=== PATIENT | female | born 1940 | race Caucasian/White ===

== ENCOUNTER 2019-07-11 15:30 | Outpatient (CLI) | payer MEDICARE, MEDICAID ==
[2019-07-11 15:13] LABS: BILIRUBIN,URINE NEGATIVE (NEGATIVE); GLUCOSE, URINE (UA) 500 mg/dL (NEGATIVE); KETONES,URINE (UA) TRACE mg/dL (NEGATIVE); LEUKOCYTE ESTERASE, URINE NEGATIVE (NEGATIVE); NITRITE,URINE NEGATIVE (NEGATIVE); OCCULT BLOOD,URINE TRACE-INTA (NEGATIVE); PH,URINE 5.5 PH (5.0-7.5); PROTEIN,URINE NEGATIVE (NEGATIVE); UROBILINOGEN,URINE 0.2 (NORMAL) E.U./dL (NORMAL)
[2019-07-11 15:14] LABS: CLARITY,URINE CLEAR (CLEAR)
== END 2019-07-11 23:59 | disposition home or self-care (01) ==
LOC: LAB.R 15:30
PROVIDERS: ATTEND Obstetrics & Gynecology
DX: R39.15 Urgency of urination (principal)
CPT/HCPCS: 81001; 81003; 87086

== ENCOUNTER 2019-09-26 11:58 | Outpatient (CLI) | payer MEDICARE, MEDICAID ==
[2019-09-26 17:27] LABS: HGB - HEMOGLOBIN 14.3 g/dL (12.0-16.0); MEAN CORPUSCULAR HEMOGLOBIN 31.6 pg (27.0-31.0); MEAN CORPUSCULAR HGB CONC 32.4 g/dL (32.0-36.0); MEAN CORPUSCULAR VOLUME 97.8 fL (81.0-99.0); MEAN PLATELET VOLUME 10.5 fL (7.9-10.8); RED BLOOD COUNT 4.52 10^6/uL (4.20-5.40); RED CELL DISTRIBUTION WIDTH 13.4 % (12.0-15.0)
[2019-09-26 17:43] LABS: ALBUMIN 4.1 g/dL (3.2-5.5); ALBUMIN/GLOBULIN RATIO 1.5 (1.0-2.2); BILIRUBIN,TOTAL 0.6 mg/dL (0.2-1.0); CALCIUM 9.5 mg/dL (8.5-10.3); CREATININE 0.6 mg/dL (0.4-1.0); TOTAL PROTEIN 6.9 g/dL (6.7-8.2)
== END 2019-09-26 11:59 | disposition home or self-care (01) ==
LOC: LAB.S 11:58
PROVIDERS: ATTEND Obstetrics & Gynecology
DX: R63.4 Abnormal weight loss (principal)
CPT/HCPCS: 36415; 80053; 85027

== ENCOUNTER 2019-09-29 10:50 | Outpatient (CLI) | payer MEDICARE, MEDICAID ==
[2019-09-29] MEDS ORDERED: IOVERSOL 320 50 ML VIAL ONE (10:57)
[2019-09-29] MEDS ORDERED: IOVERSOL 320 100 ML VIAL IVP ONE ×2 (10:58→13:06)
[2019-09-29] MEDS ORDERED: IOVERSOL 320 50 ML VIAL PO ONE (13:06)
--- NOTE | 2019-09-29 14:15 | CT Report ---
Reason: UNINTENTIONAL WEIGHT LOSS Procedure Date: 09/29/2019 Accession Number: [id number] / [id number] Procedure: CT - Abdomen/Pelvis W CPT Code: Final Report FULL RESULT: EXAM: CT ABDOMEN AND PELVIS EXAM DATE: 09/29/2019 12:09 PM. CLINICAL HISTORY: Unintentional weight loss. COMPARISONS: None. TECHNIQUE: Routine helical CT imaging was performed through the abdomen and pelvis. IV contrast: OPTI 320 100ML. Enteric contrast: Yes. Reconstructions: Coronal and sagittal. In accordance with CT protocol optimization, one or more of the following dose reduction techniques were utilized for this exam: automated exposure control, adjustment of mA and/or KV based on patient size, or use of iterative reconstructive technique. FINDINGS: Lung Bases: Unremarkable. Liver: Diffuse mild low density without mass or lobular contour changes noted. Gallbladder/Bile Ducts: There are gallbladder stones, the largest 1.6 cm without gallbladder wall thickening or bile duct dilatation. Spleen: Normal. Pancreas: Normal. Adrenal Glands: Normal. Kidneys: There is an exophytic cortical cyst, simple appearance, in the upper posterior left kidney, 1.3 cm. No stone, masses or hydronephrosis. Peritoneal Cavity/Bowel: There is colon diverticulosis without diverticulitis. No free fluid, free air or adenopathy. No masses or acute inflammatory process. The appendix is well visualized and normal. Pelvic Organs: There is a cyst in the right ovary, 1.3 x 1.3 x 1.6 cm. The bladder and visualized pelvic organs are within normal limits. Vasculature: No aneurysms or other significant abnormality. Bones: No significant abnormality. Multilevel mild to moderate degenerative disk disease in the lower thoracic spine through the lumbar spine is noted. There is mild/moderate degenerative arthritis in the bilateral hip joints, greater on the left. Other: None. IMPRESSION: 1. A right ovarian cyst, 1.6 cm; if clinically warranted, recommend further assessment by pelvic ultrasound. Otherwise, negative for mass, adenopathy or ascites. 2. Cholelithiasis without cholecystitis or bile duct dilatation. 3. Hepatic steatosis. 4. Colon diverticulosis. RADIA
== END 2019-09-29 10:51 | disposition home or self-care (01) ==
LOC: DI 10:50
PROVIDERS: ATTEND Obstetrics & Gynecology
DX: N83.201 Unspecified ovarian cyst, right side (principal); K80.20 Calculus of gallbladder without cholecystitis without obstruction; K76.0 Fatty (change of) liver, not elsewhere classified; K57.30 Diverticulosis of large intestine without perforation or abscess without bleeding; R63.4 Abnormal weight loss
CPT/HCPCS: 74177; Q9967

== ENCOUNTER 2020-05-28 10:50 | Outpatient (CLI) | payer MEDICARE, MEDICAID ==
[2020-05-28 15:55] LABS: CHOL/HDL RATIO 4.3 (<4.4); CHOLESTEROL 285 mg/dL; HDL CHOLESTEROL 67 mg/dL; LDL CHOLESTEROL,CALCULATED 194 mg/dL; LDL/HDL RATIO 2.9 (<4.4); VLDL CHOLESTEROL 24 mg/dL
[2020-05-28 19:05] LABS: HEMOGLOBIN A1c% 7.7 % (4.27-6.07)
== END 2020-05-28 10:51 | disposition home or self-care (01) ==
LOC: LAB.S 10:50
PROVIDERS: ATTEND Physician Assistant
DX: R73.9 Hyperglycemia, unspecified (principal); Z79.899 Other long term (current) drug therapy
CPT/HCPCS: 36415; 80061; 83036; 83721

== ENCOUNTER 2023-03-03 14:19 | Outpatient (CLI) | payer MEDICARE, MEDICAID ==
--- NOTE | 2023-03-03 16:29 | XRAY Report ---
PROCEDURE: Foot 3 View LT INDICATIONS: LEFT FOOT PAIN TECHNIQUE: 3 views of the foot were acquired. COMPARISON: None. FINDINGS: Bones: No fractures or dislocations. Moderate osteoarthritic changes are noted throughout left foot most notably at tibiotalar joint. Diffuse osteopenia is seen. No suspicious bony lesions. Soft tissues: No suspicious soft tissue calcifications or masses. 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 No acute fracture or dislocation. Osteopenia. Reviewed by: Suresh Umana MD on 03/03/2023 4:28 PM PDT Approved by: Suersh Umana MD on 03/03/2023 4:28 PM PDT Station ID: [id number]
--- NOTE | 2023-03-03 16:30 | XRAY Report ---
PROCEDURE: Ankle 3 View LT INDICATIONS: LEFT ANKLE PAIN TECHNIQUE: 3 views of the ankle were acquired. COMPARISON: None. FINDINGS: Bones: No fractures or dislocations. Moderate to severe tibiotalar and subtalar joint osteoarthriti s is seen. Suggestion of old fracture involving tip of lateral malleolus with chronic-appearing defor mity. Osteopenia is also seen. Ankle mortise is normally aligned. No suspicious bony lesions. Soft tissues: No tibiotalar joint effusion. Achilles tendon appears normal. Diffuse ankle soft tis elvis swelling is noted. IMPRESSION: No acute ankle fracture or dislocation. Old fracture involving lateral malleolus. Moderate to severe tibiotalar and subtalar joint osteoarthritis. Diffuse ankle soft tissue swelling. Reviewed by: Suresh Umana MD on 03/03/2023 4:29 PM PDT Approved by: Suresh Umana MD on 03/03/2023 4:29 PM PDT Station ID: [id number]
== END 2023-03-03 23:59 | disposition home or self-care (01) ==
LOC: DI.S 14:19
PROVIDERS: ATTEND Emergency Medicine
DX: M19.072 Primary osteoarthritis, left ankle and foot (principal); R22.42 Localized swelling, mass and lump, left lower limb; M85.872 Other specified disorders of bone density and structure, left ankle and foot

== ENCOUNTER 2023-03-14 21:11 | Outpatient (CLI) | payer MEDICARE, MEDICAID ==
--- NOTE | 2023-03-15 00:44 | Ultrasound Report ---
PROCEDURE: Duplex Lwr Ext Arterial LT INDICATIONS: ISCHEMIC ULCER LEFT ANKLE, CRITICAL LIMB ISCHEMIA TECHNIQUE: Color and pulse Doppler interrogation was performed of the left lower extremity arterial system, with image documentation. COMPARISON: None. FINDINGS: Common femoral artery: 138 cm/sec, with biphasic flow. Deep femoral artery: 123 cm/sec, with biphasic flow. Proximal superficial femoral artery: 79 cm/sec, with monophasic flow. Mid superficial femoral artery: 33-98 cm/sec, with monophasic flow. Distal superficial femoral artery: 435 cm/sec, with monophasic flow. Popliteal artery: 43 cm/sec, with monophasic low-resistance flow. Posterior tibial artery: 72-46 cm/sec, with monophasic flow. Anterior tibial artery/dorsalis pedis: 65.5/11.1 cm/sec, with monophasic flow. Greenberg-scale imaging description: There is severe atherosclerotic plaque. There are small collateral v essels noted. IMPRESSION: 1. Focal increased velocities within the left distal superficial femoral artery compatible with a sev ere stenosis. Reviewed by: Aaron Tucker MD on 03/15/2023 12:43 AM PDT Approved by: Aaron Tucker MD on 03/15/2023 12:43 AM PDT Station ID: [id number]
--- NOTE | 2023-03-15 01:15 | Ultrasound Report ---
PROCEDURE: Ankle Brachial Index INDICATIONS: ISCHEMIC ULCER LEFT ANKLE, CRITICAL LIMB ISCHEMIA TECHNIQUE: Ankle-brachial indices were obtained bilaterally and recorded. COMPARISONS: Concurrent arterial ultrasound of the left lower extremity. FINDINGS: Right ankle brachial index (SERG): 0.55 Left ankle brachial index (SERG): 0.60 Healing potential: Ankle pressures >55 mm Hg in non-diabetics and >80 mm Hg in diabetics are likely to achieve primary h ealing of ischemic foot ulcers. Toe pressures >30 mm Hg are likely to achieve primary healing of ischemic foot ulcers, toe or transme tatarsal amputations. IMPRESSION: 1. Ankle-brachial indices in the lower extremities consistent with mild to moderate peripheral arteri al disease. Reviewed by: Aaron Tucker MD on 03/15/2023 1:13 AM PDT Approved by: Aaron Tucker MD on 03/15/2023 1:13 AM PDT Station ID: [id number]
== END 2023-03-14 21:12 | disposition home or self-care (01) ==
LOC: DI 21:11
PROVIDERS: ATTEND Podiatrist Foot & Ankle Surgery
DX: I70.243 Atherosclerosis of native arteries of left leg with ulceration of ankle (principal); L97.329 Non-pressure chronic ulcer of left ankle with unspecified severity
CPT/HCPCS: 93922

== ENCOUNTER 2023-03-23 12:06 | Outpatient (CLI) | payer MEDICARE, MEDICAID ==
[2023-03-23] MEDS ORDERED: iohexoL-300 100 ML VIAL ONE ×2 (12:24→16:40)
[2023-03-23 12:26] LABS: CREATININE 0.9 mg/dL (0.4-1.0)
[2023-03-23] MEDS ORDERED: iohexoL-300 100 ML VIAL IVP ONE (16:16)
--- NOTE | 2023-03-23 16:57 | CT Report ---
PROCEDURE: ANGIO ABD RUNOFF W/WO - B/L INDICATIONS: ATHSCL [place] ARTERIES OF LEFT LEG W ULCERATION OF CONTRAST: 125ml omni 300 TECHNIQUE: After the administration of intravenous contrast, a CT scan of the abdomen, pelvis and lower extremit ies (to the feet) was performed. Images were recorded and evaluated at appropriate window settings. R eformats: coronal and sagittal. For radiation dose reduction, the following was used: automated expos ure control, adjustment of mA and/or kV according to patient size. COMPARISON: None. FINDINGS: Image quality: Excellent. Arterial system: Mild diffuse plaque causes mild diffuse stenosis of the abdominal aorta. No aneurysm nor dissection. Right lower extremity: Common and external iliac arteries are patent. Moderate grade stenosis within the internal iliac artery origin. Common and profunda femoral arteries are patent. Multifocal high-gr halima stenoses within the proximal superficial femoral artery which occludes mid thigh. Because of too flow within the above and below knee popliteal artery which is mildly diffusely stenotic. Anterior ti bial artery is patent with normal terminus. Tibial peroneal trunk is occluded proximally and reconsti tutes distally. Multifocal high-grade stenoses within the peroneal artery which occludes mid calf. Po sterior tibial artery is occluded. Left lower extremity: Moderate plaque causes mild diffuse stenosis within the common iliac artery. In ternal and external iliac arteries demonstrate mild diffuse plaque causing mild diffuse stenosis. Pro kimmie femoral artery is patent. Superficial femoral artery occludes mid thigh. Above and below knee p op 2 artery are reconstituted and patent. Anterior tibial artery demonstrates high-grade focal stenos is proximally. Tibial peroneal trunk demonstrates multifocal high-grade stenoses. Peroneal and resident services manager ior tibial arteries are patent. OTHER: Lung bases and heart: Unremarkable. Liver: No solid mass. Gallbladder and biliary tree: Multiple calculi within the gallbladder lumen. Spleen: No splenomegaly. Pancreas: No pancreatic ductal dilation. Adrenals: No adrenal nodule. Kidneys and ureters: No hydronephrosis. No renal cystic lesion which requires follow up. No solid mas s. Bowel and peritoneum: No bowel distension. No pathologic free fluid. Lymph nodes: No central or retroperitoneal adenopathy. Vessels: No infrarenal aortic aneurysm. Reproductive organs: Unremarkable. Bladder: No abnormal wall thickening, accounting for underdistention. Pelvic lymph nodes: No pelvic adenopathy by size criteria. Bones: No aggressive osseous abnormality. Other: No significant ventral or inguinal hernia. IMPRESSION: 1. No significant inflow stenosis. 2. Bilateral outflow occlusions. 3. Bilateral runoff vessel stenoses as above. 4. Cholelithiasis. Reviewed by: Kristan Hills MD on 03/23/2023 4:56 PM PDT Approved by: Kristan Hills MD on 03/23/2023 4:56 PM PDT Station ID: [id number]
== END 2023-03-23 12:07 | disposition home or self-care (01) ==
LOC: LAB 12:06
PROVIDERS: ATTEND Podiatrist Foot & Ankle Surgery
DX: I70.243 Atherosclerosis of native arteries of left leg with ulceration of ankle (principal); L97.328 Non-pressure chronic ulcer of left ankle with other specified severity; L03.116 Cellulitis of left lower limb; S90.32XA Contusion of left foot, initial encounter; K80.20 Calculus of gallbladder without cholecystitis without obstruction; I70.201 Unspecified atherosclerosis of native arteries of extremities, right leg
CPT/HCPCS: 36415; 75635; 82565; Q9967

== ENCOUNTER 2023-04-26 11:14 | Observation (INO) | payer MEDICARE, MEDICAID ==
--- NOTE | 2023-04-26 11:42 | ED Physician Documentation ---
PD HPI FOCAL NEURO - Stated complaint Stated Complaint: GEN WEAKNESS,TROUBLE SPEAKING - Chief complaint Chief Complaint: Neuro - History obtained from History obtained from: Patient - Additional information Additional information: 83-year-old woman went to [place] this morning as there was a plan to do some sort of arterial vascular surgery on her left leg. The surgery was canceled because she had diarrhea. She was on her way back from [place] and about 1030 this morning developed word finding difficulty. It persisted until she got to the hospital here and now has resolved. She notes that since yesterday her left ring finger feels "dodgy." In that it was numb. Otherwise she has no complaints and her symptoms are resolved. PD PAST MEDICAL HISTORY - Present Medications Home Medications: Ambulatory Orders Medication Instructions Recorded Confirmed Home Medications Unobtainable 04/26/23 04/26/23 [HOME MEDICATIONS UNOBTAINABLE] - Allergies Allergies/Adverse Reactions: Allergies Allergy/AdvReac Type Severity Reaction Status Date / Time No Known Drug Allergies Allergy Verified 04/26/23 12:06 PD ED PE NORMAL - Vitals Vital signs reviewed: Yes - General General: Alert and oriented X 3, No acute distress - HEENT HEENT: PERRL, EOMI - Neck Neck: Supple, no meningeal sign, No bony TTP - Cardiac Cardiac: RRR, No murmur - Respiratory Respiratory: No respiratory distress, Clear bilaterally - Abdomen Abdomen: Non tender - Extremities Extremities: No edema, No calf tenderness / cord - Neuro Neuro: Alert and oriented X 3, No motor deficit, No sensory deficit, Normal speech Eye Opening: Spontaneous Motor: Obeys Commands Verbal: Oriented GCS Score: 15 - Psych Psych: Normal mood, Normal affect NIHSS - Time Time: 11:34 - Level of Consciousness Level of consciousness: (0) Alert, Keenly responsive LOC Questions: (0) Answers both Q's correct LOC Commands: (0) Performs both correctly - Gaze Best Gaze: (0) Normal - Visual Visual: (0) No loss - Facial Palsy Facial Palsy: (0) Normal, symmetrical movement - Motor Arms (both separate) Motor Arm (right): (0) No drift Motor Arm (left): (0) No drift - Motor Legs (both separate) Motor Leg (right): (0) No drift Motor Leg (left): (0) No drift - Limb Ataxia Limb Ataxia: (0) Absent - Sensory Sensory: (0) Normal - Best Language Best Language: (0) No aphasia - Dysarthria Dysarthria: (0) Normal - Extinction and Inattention (formally neg Extinction and inattention: (0) No abnormality - Total Score/Results Total Score/Result: 0 Results - Vitals Vitals: Vital Signs - 24 hr 04/26/23 04/26/23 04/26/23 11:17 12:27 13:00 Temperature 36.2 C L Heart Rate 62 74 70 Respiratory 18 28 H 20 Rate Blood Pressure 183/98 H 135/64 H 135/64 H O2 Saturation 100 95 100 Oxygen O2 Source Room air - EKG (time done) 1158 EKG releavant findings:: EKG personally interpreted by author of this note. Relevant findings are: Rate: Rate (enter#) (69) Rhythm: NSR [place]: Normal Intervals: Normal PA QRS: Normal Ischemia: Normal ST segments - Labs Labs: Laboratory Tests 04/26/23 04/26/23 04/26/23 11:36 11:36 11:36 WBC 4.9 RBC 4.68 Hgb 14.3 Hct 42.2 MCV 90.2 MCH 30.6 MCHC 33.9 RDW 13.7 Plt Count 271 MPV 9.4 Neut # (Auto) 2.7 Lymph # (Auto) 1.5 Mobile # (Auto) 0.7 Eos # (Auto) 0.0 Baso # (Auto) 0.0 Absolute Nucleated RBC 0.00 Nucleated RBC % 0.0 PT 11.3 INR 1.0 Sodium 135 Potassium 3.5 Chloride 102 Carbon Dioxide 23 Anion Gap 10.0 BUN 10 Creatinine 0.8 Estimated GFR (MDRD) 69 L Glucose 273 H Calcium 10.5 H Total Bilirubin 0.6 AST 24 ALT 62 H Alkaline Phosphatase 202 H Total Protein 7.9 Albumin 4.6 Globulin 3.3 Albumin/Globulin Ratio 1.4 Lipase 59 PD Medical Decision Making - ED course ED course: This is a kip 83-year-old woman with resolved TIA symptoms with word finding difficulties. She has peripheral vascular disease but despite that, somewhat s urprisingly is not even on aspirin. CT of the head and CT angiography demonstrate some carotid disease but nothing occlusive or high-grade. Her symptoms have resolved here and her stroke scale was 0. I started her on aspirin and statin and spoke with Dr. Guerra for admission at 12:36 PM. CBC normal. CMP notable for hyperglycemia and mild elevation of AST/alk phos. INR normal. Dr. Guerra called me again around 1:30 PM and has completed his initial evaluation. During his initial evaluation he told me that the patient was having expressive aphasia again. I went back into the room and it had resolved again. She was speaking normally. Given though that she is having waxing and waning symptoms, telestroke consultation was initiated, I had not initially initiated that since she was symptom-free and it was more of a TIA work-up. Now looking more like waxing and waning stroke. Case discussed by phone with Dr. Whyte, telestroke neurologist who agrees no TNK, but dual antiplatelet therapy with a 600 mg load of Plavix for 3 weeks and a statin. This was relayed back to Dr. Guerra. Departure - Departure Disposition: ED Place in Observation Clinical Impression: TIA (transient ischemic attack) Condition: Stable
[2023-04-26 11:49] LABS: BASOPHILS % (AUTO) 0.6 %; EOSINOPHILS % (AUTO) 0.2 %; HCT - HEMATOCRIT 42.2 % (37.0-47.0); HGB - HEMOGLOBIN 14.3 g/dL (12.0-16.0); LYMPHOCYTES # (AUTO) 1.5 10^3/uL (1.5-3.5); LYMPHOCYTES % (AUTO) 30.5 %; MEAN CORPUSCULAR HEMOGLOBIN 30.6 pg (27.0-31.0); MEAN CORPUSCULAR HGB CONC 33.9 g/dL (32.0-36.0); MEAN CORPUSCULAR VOLUME 90.2 fL (81.0-99.0); MEAN PLATELET VOLUME 9.4 fL (7.9-10.8); MONOCYTES # (AUTO) 0.7 10^3/uL (0.0-1.0); MONOCYTES % (AUTO) 13.5 %; NEUTROPHILS # (AUTO) 2.7 10^3/uL (1.5-6.6); PLT - PLATELET COUNT 271 10^3/uL (130-450); RED BLOOD COUNT 4.68 10^6/uL (4.20-5.40); RED CELL DISTRIBUTION WIDTH 13.7 % (12.0-15.0); WHITE BLOOD COUNT 4.9 x10^3/uL (4.8-10.8)
[2023-04-26 11:56] LABS: PT - PROTHROMBIN TIME 11.3 secs (9.9-12.6)
--- NOTE | 2023-04-26 12:04 | CT Report ---
PROCEDURE: Head W/O Stroke Protocol INDICATIONS: Neuro deficit, acute, stroke suspected TECHNIQUE: Noncontrast 4.5 mm thick angled axial sections acquired from the foramen magnum to the vertex, with c oronal reformats. For radiation dose reduction, the following was used: automated exposure control, adjustment of mA and/or kV according to patient size. COMPARISON: None. FINDINGS: Image quality: Excellent. CSF spaces: Basal cisterns are patent. No extra-axial fluid collections. Ventricles are normal in size and shape. Brain: No midline shift. No intracranial masses or hemorrhage. Greenberg-white matter interface is norm al. Skull and face: Calvarium and visualized facial bones are intact, without suspicious lesions. Sinuses: Visualized sinuses and mastoids are clear. IMPRESSION: No acute intracranial process. Above discussed with Giancarlo Lorenz MD at the time of dictation on 04/26/2023 at 1202 hours. This study fulfills neurological imaging criteria for inclusion or exclusion of acute stroke therapie s based on available published neurological imaging guidelines. Reviewed by: West Webb MD on 04/26/2023 12:02 PM PDT Approved by: West Webb MD on 04/26/2023 12:02 PM PDT Station ID: [id number]
[2023-04-26] MEDS ORDERED: iohexoL-300 100 ML VIAL IVP ONE (12:07)
[2023-04-26 12:15] LABS: ALBUMIN 4.6 g/dL (3.2-5.5); ALBUMIN/GLOBULIN RATIO 1.4 (1.0-2.2); BILIRUBIN,TOTAL 0.6 mg/dL (0.2-1.0); CALCIUM 10.5 mg/dL (8.5-10.3); CREATININE 0.8 mg/dL (0.6-1.3); POTASSIUM 3.5 mmol/L (3.5-4.5); TOTAL PROTEIN 7.9 g/dL (6.4-8.9)
--- NOTE | 2023-04-26 12:19 | CT Report ---
PROCEDURE: CT Angio Head/Neck INDICATIONS: word finding diff TECHNIQUE: After the administration of intravenous contrast, 1 mm thick sections acquired from the aortic arch t hrough the [place]. 3-dimensional xqswwiz-cbmoczfmi-dxlbebdkye (MIP) and/or volume renderin g reformats were acquired of the central intracranial vasculature and neck separately. For radiation dose reduction, the following was used: automated exposure control, adjustment of mA and/or kV acco rding to patient size. CONTRAST: See chart COMPARISON: CT head without contrast immediately prior to this procedure FINDINGS: Image quality: Excellent. HEAD CT ANGIOGRAPHY: Anterior circulation: Intracranial internal carotid arteries are normal in size and flow. The flow within the paired anterior cerebral arteries is normal and symmetric. The flow within the middle cer ebral arteries is normal and symmetric. The anterior communicating artery is seen. No aneurysms are seen. Posterior circulation: Visualized portions of the vertebral arteries demonstrate normal caliber, and join to form a normal appearing basilar artery. Flow within the posterior cerebral arteries is norm al and symmetric. No aneurysms are seen. NECK CT ANGIOGRAPHY: Carotid system: The great vessels demonstrate a variant anatomy as they arise from the aortic arch, in which the left vertebral artery also arises as an independent vessel off of the arch. Less than 50 % proximal left common carotid artery stenosis. Proximal right common carotid is widely patent. The c ommon carotid arteries demonstrate normal caliber and courses. There are bilateral less than 50% prox imal internal carotid artery stenoses, right greater than left. Posterior circulation: The origins of the vertebral arteries both appear widely patent. The more haynes perior extracranial portions of both vertebral arteries also demonstrate normal courses and calibers. They join to form a normal appearing basilar artery. Soft tissues: Visualized neck soft tissues demonstrate no suspicious abnormalities. Bones: No suspicious bony lesions. Visualized cervical spine appears normally aligned. IMPRESSION: 1. Unremarkable CTA head. No stenosis, aneurysm, occlusion, or focal filling defect. 2. Mild bilateral, less than 50% proximal internal carotid artery stenosis. 3. Less than 50% origin stenosis of the left common carotid artery. Above discussed with Giancarlo Lorenz MD at the time of dictation on 04/26/2023 at 1216 hours. The estimate of stenosis included in the report of the imaging study was calculated using the NASCET method Reviewed by: West Webb MD on 04/26/2023 12:17 PM PDT Approved by: West Webb MD on 04/26/2023 12:17 PM PDT Station ID: [id number]
[2023-04-26] MEDS ORDERED: ATORVASTATIN 40 MG TABLET PO STA (12:35)
[2023-04-26] MEDS ORDERED: ASPIRIN CHEW 81 MG TABLET PO STA (12:35)
[2023-04-26] MEDS ORDERED: SODIUM CHLORIDE FLUSH 0.9% 10 ML SYRINGE IVP PRN (13:16)
[2023-04-26] MEDS ORDERED: ACETAMINOPHEN 325 MG TABLET PO PRN (13:16)
[2023-04-26] MEDS ORDERED: ONDANSETRON ODT 4 MG TABLET TL PRN (13:16)
[2023-04-26] MEDS ORDERED: HYDROcod/ACETAM 5/325 MG TABLET PO PRN (13:16)
[2023-04-26] MEDS ORDERED: LABETALOL 20 MG/4 ML SYRINGE IVP PRN (13:20)
--- NOTE | 2023-04-26 13:43 | HISTORY & PHYSICAL EXAMINATION ---
Chief Complaint - Chief Complaint Chief Complaint: Word finding difficulty Stroke/TIA/Neuro Template - Admitted From Admitted from: ED - History Obtained From Records Reviewed: RN notes reviewed History obtained from: Patient, Other (From Dr. Jaffe, ED physician) Exam limitations: Clinical condition (Patient with expressive aphasia during admission, having difficult time providing history) - History of Present Illness Problem Location Description: Word finding difficulties Severity at the worst: reports: Severe Symptom Quality: reports: Expressive aphasia Context- Symptoms started w/: reports: Awake Timing: reports: Abrupt onset Date of onset: 04/26/23 Time of onset: 10:30 Improved with: reports: Nothing Worsened by: reports: Nothing HPI Comment/Other: Patient is an 83-year-old female with expressive aphasia. History is very difficult to obtain due to the patient'sAcute expressive aphasia. Per Dr. Jaffe in the ED, patient is is an 83-year-old female with a PMH of peripheral vascular disease who states that she is not on any medications. She went to the hospital in [facility] for a scheduled outpatient vascular procedure. She reported to them that she was having some diarrhea in the morning and they canceled her case. She turned around to come back home and on the way home she started to have word finding difficulty. This continued until she arrived at the hospital and had apparently resolved when the ED physician was performing his assessments. She was evaluated as a code neuro. Head CT was negative for acute findings, as was the head and neck CT angiogramm showing partial occlusion of bilateral ICA but no obvious large vessel occlusion. Telemedicine neurology consultation was obtained. She was not felt to be a candidate for thrombolytic therapy as symptoms had improved, request for observation for stroke work-up was made. PMH/PSH - Past Medical History Cardiovascular: positive: Peripheral Vascular Disease MRSA Hx?: No Social & Family Hx - Living Situation Living Arrangement: Unknown Living Situation: Unknown - Social History Does the pt smoke?: No Smoking Status: Never smoker Does the pt drink ETOH?: No Does the pt have substance abuse?: No - POLST Patient has POLST: No - Family History Family History Comment/Other: Unobtainable family history due to patient's expressive aphasia Meds/Allgy - Home Medications Home Medications: Ambulatory Orders Medication Instructions Recorded Confirmed Home Medications Unobtainable 04/26/23 04/26/23 [HOME MEDICATIONS UNOBTAINABLE] - Allergies Allergies/Adverse Reactions: Allergies Allergy/AdvReac Type Severity Reaction Status Date / Time No Known Drug Allergies Allergy Verified 04/26/23 12:06 Review of Systems - Neurological Neurological: reports: Other (Difficulty speaking) - All Other Systems All Other Systems: reports: Other (Limited ability to obtain review of systems due to patient's expressive aphasia, she was able to express pain in the left leg, but otherwise became very frustrated with answering questions so the review of systems was aborted for now) Exam - Vital Signs Reviewed Vital Signs: Yes Vital Signs: Vital Signs x48h Temp Pulse Resp BP Pulse Ox 04/26/23 13:00 70 20 135/64 H 100 04/26/23 12:27 74 28 H 135/64 H 95 04/26/23 11:17 36.2 C L 62 18 183/98 H 100 - Physical Exam General Appearance: positive: No acute distress Eyes Bilateral: positive: Normal inspection ENT: positive: ENT inspection nml Respiratory: positive: Chest non-tender, No respiratory distress, Breath sounds nml Results - Lab Results Lab results reviewed: Yes Fish Bones: 04/26/23 11:36 04/26/23 11:36 Other Lab Results: Lab Results x24hrs 04/26/23 04/26/23 04/26/23 Range/Units 11:36 11:36 11:36 WBC 4.9 (4.8-10.8) x10^3/uL RBC 4.68 (4.20-5.40) 10^6/uL Hgb 14.3 (12.0-16.0) g/dL Hct 42.2 (37.0-47.0) % MCV 90.2 (81.0-99.0) fL MCH 30.6 (27.0-31.0) pg MCHC 33.9 (32.0-36.0) g/dL RDW 13.7 (12.0-15.0) % Plt Count 271 (130-450) 10^3/uL MPV 9.4 (7.9-10.8) fL Neut # (Auto) 2.7 (1.5-6.6) 10^3/uL Lymph # (Auto) 1.5 (1.5-3.5) 10^3/uL Wood # (Auto) 0.7 (0.0-1.0) 10^3/uL Eos # (Auto) 0.0 (0.0-0.7) 10^3/uL Baso # (Auto) 0.0 (0.0-0.1) 10^3/uL Absolute Nucleated RBC 0.00 x10^3/uL Nucleated RBC % 0.0 /100WBC PT 11.3 (9.9-12.6) secs INR 1.0 (0.8-1.2) Sodium 135 (135-145) mmol/L Potassium 3.5 (3.5-4.5) mmol/L Chloride 102 (101-111) mmol/L Carbon Dioxide 23 (21-32) mmol/L Anion Gap 10.0 (6-13) BUN 10 (6-20) mg/dL Creatinine 0.8 (0.6-1.3) mg/dL Estimated GFR (MDRD) 69 L (>89) Glucose 273 H (74-104) mg/dL Calcium 10.5 H (8.5-10.3) mg/dL Total Bilirubin 0.6 (0.2-1.0) mg/dL AST 24 (10-42) IU/L ALT 62 H (10-60) IU/L Alkaline Phosphatase 202 H (42-121) IU/L Total Protein 7.9 (6.4-8.9) g/dL Albumin 4.6 (3.2-5.5) g/dL Globulin 3.3 (2.1-4.2) g/dL Albumin/Globulin Ratio 1.4 (1.0-2.2) Lipase 59 (11-82) U/L - Diagnostic Imaging Results Diagnostic Imaging Results: positive: Final report reviewed - EKG Results EKG Interpreted Independently: Yes Impression/Plan - Problem List Problem List: #CVA #Epxressive Aphasia * Difficult to obtain history from patient due to the acute expressive aphasia * Per ED physician, symptoms had resolved upon arrival and assessment by ED MD * Due to the resolution of symptoms, neurology did not recommend thrombolytic therapy * However, upon my assessment, the patient seems to have relapsed and having expressive aphasia again * Imaging thus far has been noncontributory * Based on the timing, at the time of my assessment, she was just under 3 hours from the onset of symptoms. Because of the recurrence of symptoms, I contact ed Dr. Lorenz who will notify the stroke neurologist to reassess her to see if there may be a benefit to offering thrombolytic therapy * Her sx had resolved again after Dr Lorenz went back a second time after notifying him of my findings * This suggests wax and waning sx * I will defer to stroke neurologist to determine if TPA is indicated * At this time, will proceed with plan as follows below - and follow up re- assement by neurology. If TPA is recommended and administered, will proceed and monitor in ICU, otherwise plan is as below: * We will place patient in observation Stroke work-up including MRI to be obtained Check echocardiogram Monitor BP - permissive HTN Check A1c and lipid panel in the a.m. Start ASA Start Plavix tomorrow (to be held if TPA given) Start statin PT/OT evals #PAD * ASA and plavix as above * Stating and lipids as above * Defer further management (possible LLE stent placement planned at [facility]) to outpt vascular surgery #Chronic LLE ankle wound * Chronic * Stable * Wound care ordered #Diarrhea * Appears to have resolved * Monitor #Elevated Alk Phos #Elevated ALT * Uncertain significance * Possibly related to diarrhea * No abd pain on exam * Monitor, repeat labs in am, if elevated consider Abd U/S #DVT Px * SCD's #Code Status * Full Code Core Measures - Anticipated LOS I expect patient to be DC'd or transferred within 96 hours.: Yes - DVT/VTE - Prophylaxis VTE/DVT Device ordered at admit?: Yes - Stroke - Rehab Assessment Rehab services assessment to be ordered?: Yes
[2023-04-26] MEDS ORDERED: CLOPIDOGREL 300 MG TABLET PO ONE (13:57)
[2023-04-26] MEDS: SODIUM CHLORIDE FLUSH 0.9% 10 ML SYRINGE IVP SCH (16:53)
[2023-04-26] MEDS ORDERED: INSULIN LISPRO 300 UNIT/3 ML PEN SUBQ SCH (17:00)
[2023-04-26] MEDS: INSULIN LISPRO 300 UNIT/3 ML PEN SUBQ SCH (21:09)
[2023-04-27] MEDS: SODIUM CHLORIDE FLUSH 0.9% 10 ML SYRINGE IVP SCH ×3 (00:44→17:15)
[2023-04-27 05:06] LABS: HCT - HEMATOCRIT 38.9 % (37.0-47.0); HGB - HEMOGLOBIN 12.9 g/dL (12.0-16.0); MEAN CORPUSCULAR HEMOGLOBIN 30.8 pg (27.0-31.0); MEAN CORPUSCULAR HGB CONC 33.2 g/dL (32.0-36.0); MEAN CORPUSCULAR VOLUME 92.8 fL (81.0-99.0); MEAN PLATELET VOLUME 9.2 fL (7.9-10.8); RED BLOOD COUNT 4.19 10^6/uL (4.20-5.40); RED CELL DISTRIBUTION WIDTH 14.1 % (12.0-15.0); WHITE BLOOD COUNT 4.5 x10^3/uL (4.8-10.8)
[2023-04-27 05:21] LABS: ALBUMIN 3.7 g/dL (3.2-5.5); ALKALINE PHOSPHATASE 169 IU/L (42-121); ALT ALANINE AMINOTRANSFERASE 44 IU/L (10-60); AST ASPARTATE AMINOTRANSFERASE 17 IU/L (10-42); BILIRUBIN,TOTAL 0.6 mg/dL (0.2-1.0); BUN - BLOOD UREA NITROGEN 8 mg/dL (6-20); CALCIUM 9.7 mg/dL (8.5-10.3); CARBON DIOXIDE - CO2 27 mmol/L (21-32); CHLORIDE 106 mmol/L (101-111); CHOL/HDL RATIO 4.9 (<4.4); CHOLESTEROL 202 mg/dL; CREATININE 0.8 mg/dL (0.6-1.3); GFR - MDRD 69 (>89); GLUCOSE 227 mg/dL (74-104); HDL CHOLESTEROL 41 mg/dL; LDL CHOLESTEROL,CALCULATED 134 mg/dL; LDL/HDL RATIO 3.3 (<4.4); SODIUM 139 mmol/L (135-145); TOTAL PROTEIN 6.3 g/dL (6.4-8.9); TRIGLYCERIDES 133 mg/dL (48-352); VLDL CHOLESTEROL 27 mg/dL
[2023-04-27] MEDS: INSULIN LISPRO 300 UNIT/3 ML PEN SUBQ SCH ×4 (08:03→21:34)
[2023-04-27] MEDS: CLOPIDOGREL 75 MG TABLET PO SCH (08:03)
[2023-04-27] MEDS: ASPIRIN CHEW 81 MG TABLET PO SCH (08:03)
[2023-04-27] MEDS ORDERED: CLOPIDOGREL 75 MG TABLET PO SCH (09:00)
[2023-04-27 10:09] LABS: ESTIMATED AVERAGE GLUCOSE 189 mg/dL (70-100); HEMOGLOBIN A1c% 8.2 % (4.27-6.07)
--- NOTE | 2023-04-27 10:29 | MRI Report ---
PROCEDURE: BRAIN WO INDICATIONS: Expressive aphasia, probable CVA TECHNIQUE: Noncontrast axial T1 spin echo, axial T2 fast spin echo, sagittal and axial FLAIR, coronal T2 fast sp in echo, axial gradient echo, axial diffusion and ADC through the brain. COMPARISON: None. FINDINGS: Image quality: Excellent. CSF Spaces: Basal cisterns are patent. No extra-axial fluid collections. Ventricles are normal in size and shape. Brain: No intracranial masses or hemorrhage. Greenberg/white matter interface is normal. Brainstem appe ars normal. Diffusion-weighted images demonstrate no acute ischemic insult. Mild chronic microvascul ar ischemic change. Mild age-related global volume loss. No chronic ischemic insults. Normal intrava scular flow voids are present. Skull and face: Calvarium has normal marrow signal. Orbits appear normal. Sinuses: Sinuses and mastoids are clear. IMPRESSION: 1.No acute or subacute infarct. No acute intracranial abnormalities. 2.Age-related global volume loss and chronic microvascular ischemic change. Reviewed by: Tacos Garcia MD on 04/27/2023 10:27 AM PDT Approved by: Tacos Garcia MD on 04/27/2023 10:27 AM PDT Station ID: [id number]
--- NOTE | 2023-04-27 13:57 | PHARMACY PROGRESS NOTE ---
- Best Possible Medication History Admit Date and Time: 04/26/23 1318 Processed by: Pharmacy Medication History completed: Yes Patient Interview: Completed patient states that her provider instructed her to d/c all medications a few weeks ago and she doesn't recall what they were As the person ultimately responsible for medication therapy, providers are able to order a medication from an existing home medication list in [facility] via the "Reconcile Routine" prior to Confirmation of that medication by user support specialist. Such practice is discouraged except when the physician, in their clinical judgment, deems that a medical need exists for a medication without regard to previous use.
--- NOTE | 2023-04-27 16:18 | PROVIDER PROGRESS NOTE ---
Assessment/Plan - Problem List (1) TIA (transient ischemic attack) Assessment/Plan: Patient was evaluated by telemetry neurology for presentation with expressive aphasia which has resolved at this time. Patient was evaluated as a code neuro. CT of head was negative for any acute findings CTA of head and neck showed partial occlusion of bilateral ICA but no obvious large vessel occlusion. Telemetry medicine neurology consultation was obtained at [id number] and was not felt to be candidate for thrombolytic therapy. Patient was initiated on ASA and she was also given a load of Plavix and is to continue with dual antiplatelet agents.MRI of brain without contrast reveals no acute or subacute infarct. No acute intracranial abnormalities. Age-related global volume loss and chronic microvascular ischemic changes were found. Patient's echocardiogram is pending. (2) PAD (peripheral artery disease) Assessment/Plan: Patient was on her way to [facility] to have a procedure done on lower extremity for PAD. This procedure was deferred due to patient's acute neurological change. She is to continue with ASA and Plavix for now. - Current Meds Current Meds: Current Medications Generic Name Dose Route Start Last Admin Trade Name Romanq PRN Reason Stop Dose Admin Acetaminophen 650 mg 04/26/23 13:16 04/26/23 18:59 Acetaminophen 325 Mg Tablet PO 650 mg Q4HR PRN Administration Pain 1 to 4, or Fever Aspirin 162 mg 04/27/23 09:00 04/27/23 08:03 Aspirin Chew 81 Mg Tablet PO 162 mg DAILY JAY Administration Clopidogrel Bisulfate 75 mg 04/27/23 09:00 04/27/23 08:03 Clopidogrel 75 Mg Tablet PO 75 mg DAILY JAY Administration Sodium Chloride 10 ml 04/26/23 17:00 04/27/23 08:04 Sodium Chloride Flush 0.9% 10 Ml Syringe IVP 10 ml 0100,0900,1700 JAY Administration - Lab Result Fish Bone Diagrams: 04/27/23 04:45 04/27/23 04:45 Subjective - Subjective Patient Reports: Feeling Better, No Complaints Objective Vital Signs: Vital Signs - 24 hr 04/26/23 04/27/23 04/27/23 21:00 00:18 05:30 Temperature 36.2 C L 36.7 C 37.0 C Heart Rate [ 79 Brachial] Heart Rate [ 74 78 Radial] Respiratory 18 16 20 Rate Blood Pressure 125/64 [Left Brachial artery] Blood Pressure 113/55 L 109/69 [Left Radial artery] O2 Saturation 97 98 99 04/27/23 04/27/23 04/27/23 08:42 10:00 12:40 Temperature 36.3 C L 36.2 C L Heart Rate [ 81 70 Brachial] Heart Rate [ 95 Radial] Respiratory 18 16 18 Rate Blood Pressure 134/70 H [Left Brachial artery] Blood Pressure 134/70 H 114/59 L [Left Radial artery] O2 Saturation 97 99 98 Oxygen O2 Source Room air I&O (Last 24 Hrs): Intake and Output Totals x24h 04/25/23 04/26/23 04/27/23 23:59 23:59 23:59 Intake Total 620 580 Balance 620 580 General: Alert, Oriented x3, Cooperative HEENT: Atraumatic Neuro: Alert, Non Focal, Oriented Times 3 Cardiovascular: Regular rate, Normal S1, Normal S2 Respiratory: Chest non-tender Abdomen: Normal bowel sounds, Soft Extremities: No edema Skin: No rashes - Results Results: Laboratory Results WBC 4.5 x10^3/uL (4.8-10.8) L 04/27/23 04:45 RBC 4.19 10^6/uL (4.20-5.40) L 04/27/23 04:45 Hgb 12.9 g/dL (12.0-16.0) 04/27/23 04:45 Hct 38.9 % (37.0-47.0) 04/27/23 04:45 MCV 92.8 fL (81.0-99.0) 04/27/23 04:45 MCH 30.8 pg (27.0-31.0) 04/27/23 04:45 MCHC 33.2 g/dL (32.0-36.0) 04/27/23 04:45 RDW 14.1 % (12.0-15.0) 04/27/23 04:45 Plt Count 212 10^3/uL (130-450) 04/27/23 04:45 MPV 9.2 fL (7.9-10.8) 04/27/23 04:45 Neut # (Auto) 2.7 10^3/uL (1.5-6.6) 04/26/23 11:36 Lymph # (Auto) 1.5 10^3/uL (1.5-3.5) 04/26/23 11:36 [place] # (Auto) 0.7 10^3/uL (0.0-1.0) 04/26/23 11:36 Eos # (Auto) 0.0 10^3/uL (0.0-0.7) 04/26/23 11:36 Baso # (Auto) 0.0 10^3/uL (0.0-0.1) 04/26/23 11:36 Absolute Nucleated RBC 0.00 x10^3/uL 04/26/23 11:36 Nucleated RBC % 0.0 /100WBC 04/26/23 11:36 PT 11.3 secs (9.9-12.6) 04/26/23 11:36 INR 1.0 (0.8-1.2) 04/26/23 11:36 Sodium 139 mmol/L (135-145) 04/27/23 04:45 Potassium 4.0 mmol/L (3.5-4.5) 04/27/23 04:45 Chloride 106 mmol/L (101-111) 04/27/23 04:45 Carbon Dioxide 27 mmol/L (21-32) 04/27/23 04:45 Anion Gap 6.0 (6-13) 04/27/23 04:45 BUN 8 mg/dL (6-20) 04/27/23 04:45 Creatinine 0.8 mg/dL (0.6-1.3) 04/27/23 04:45 Estimated GFR (MDRD) 69 (>89) L 04/27/23 04:45 Glucose 227 mg/dL (74-104) H 04/27/23 04:45 POC Whole Bld Glucose 209 mg/dL (70 - 100) H 04/27/23 11:12 Estimat Average Glucose 189 mg/dL (70-100) H 04/27/23 04:45 Hemoglobin A1c % 8.2 % (4.27-6.07) H 04/27/23 04:45 Calcium 9.7 mg/dL (8.5-10.3) 04/27/23 04:45 Total Bilirubin 0.6 mg/dL (0.2-1.0) 04/27/23 04:45 Direct Bilirubin 0.10 mg/dL (0.03-0.18) 04/27/23 04:45 AST 17 IU/L (10-42) 04/27/23 04:45 ALT 44 IU/L (10-60) 04/27/23 04:45 Alkaline Phosphatase 169 IU/L (42-121) H 04/27/23 04:45 Total Protein 6.3 g/dL (6.4-8.9) L 04/27/23 04:45 Albumin 3.7 g/dL (3.2-5.5) 04/27/23 04:45 Globulin 2.6 g/dL (2.1-4.2) 04/27/23 04:45 Albumin/Globulin Ratio 1.4 (1.0-2.2) 04/26/23 11:36 Triglycerides 133 mg/dL (48-352) 04/27/23 04:45 Cholesterol 202 mg/dL (-200) H 04/27/23 04:45 LDL Cholesterol, Calc 134 mg/dL (-129) H 04/27/23 04:45 VLDL Cholesterol 27 mg/dL 04/27/23 04:45 HDL Cholesterol 41 mg/dL (60-) L 04/27/23 04:45 LDL/HDL Ratio 3.3 (<4.4) 04/27/23 04:45 Cholesterol/HDL Ratio 4.9 (<4.4) 04/27/23 04:45 Lipase 59 U/L (11-82) 04/26/23 11:36 ABX Reporting Has patient been on IV antibiotics over the past 48 hours?: No
[2023-04-27] MEDS ORDERED: ATORVASTATIN 40 MG TABLET PO SCH (21:00)
[2023-04-28] MEDS: SODIUM CHLORIDE FLUSH 0.9% 10 ML SYRINGE IVP SCH ×2 (00:50→08:45)
[2023-04-28 05:42] LABS: HCT - HEMATOCRIT 41.3 % (37.0-47.0); HGB - HEMOGLOBIN 13.5 g/dL (12.0-16.0); MEAN CORPUSCULAR HEMOGLOBIN 30.3 pg (27.0-31.0); MEAN CORPUSCULAR HGB CONC 32.7 g/dL (32.0-36.0); MEAN CORPUSCULAR VOLUME 92.8 fL (81.0-99.0); MEAN PLATELET VOLUME 9.4 fL (7.9-10.8); RED BLOOD COUNT 4.45 10^6/uL (4.20-5.40)
[2023-04-28 06:01] LABS: CREATININE 0.7 mg/dL (0.6-1.3); POTASSIUM 4.4 mmol/L (3.5-4.5)
[2023-04-28] MEDS: CLOPIDOGREL 75 MG TABLET PO SCH (08:44)
[2023-04-28] MEDS: ASPIRIN CHEW 81 MG TABLET PO SCH (08:44)
[2023-04-28] MEDS: INSULIN LISPRO 300 UNIT/3 ML PEN SUBQ SCH (08:54)
--- NOTE | 2023-04-28 10:38 | Discharge Plan ---
Discharge Plan Problem Reviewed?: Yes Disposition: 01 Home, Self Care Condition: Stable Prescriptions: Atorvastatin [Lipitor] 80 mg PO QPM #30 tab Clopidogrel [Plavix] 75 mg PO DAILY #30 tab Aspirin Chewable [St Jon Aspirin] 162 mg PO DAILY #30 tab Diet: Cardiac Activity Restrictions: Activity as Tolerated Weight Bearing: Full Weight Instruction Topics: Diabetes Manage A1C Test Assessment: (1) TIA (transient ischemic attack) Assessment/Plan: Patient was evaluated by telemetry neurology for presentation with expressive aphasia which has resolved at this time. Patient was evaluated as a code neuro. CT of head was negative for any acute findings CTA of head and neck showed partial occlusion of bilateral ICA but no obvious large vessel occlusion. Telemetry medicine neurology consultation was obtained at [id number] and was not felt to be candidate for thrombolytic therapy. Patient was initiated on ASA and she was also given a load of Plavix and is to continue with dual antiplatelet agents.MRI of brain without contrast reveals no acute or subacute infarct. No acute intracranial abnormalities. Age-related global volume loss and chronic microvascular ischemic changes were found. Patient's echocardiogram is pending.Patient's echocardiogram report reveals underlying rhythm is sinus. Left ventricle size is normal. Wall thickness is normal. EF is 60 to 65% with normal diastology for age. Right ventricle size is normal systolic right ventricle function is normal. Right atrial size is normal. The aortic valve is trileaflet there is mild aortic valve sclerosis no evidence of aortic stenosis. There is no evidence of aortic regurgitation.There is trace mitral regurgitation. The tricuspid valve appears structurally normal. Mild tricuspid regurgitation present. Pulmonic valve is normal. Trace pulmonic regurgitation. Intra-atrial septum is intact there is lipomatous hypertrophy of the intra- atrial septum. No mass or thrombus identified. No pleural effusion noted. (2) PAD (peripheral artery disease) Assessment/Plan: Patient was on her way to [facility] to have a procedure done on lower extremity for PAD. This procedure was deferred due to patient's acute neurological change. She is to continue with ASA and Plavix for now. Patient is to follow-up in [address] [facility]. No Smoking: If you smoke, Please STOP! Call for help.
[2023-04-28 11:11] VITALS: BP 126/83
--- NOTE | 2023-04-28 11:22 | DISCHARGE SUMMARY ---
"Discharge Summary Admit Date: 04/26/23 Discharge Date: 04/28/23 Discharging Provider: Becca French MD Primary Care Provider: [facility] Code Status: Attempt Resuscitation Condition at Discharge: Stable Discharge Disposition: 01 Home, Self Care - DIAGNOSES Admission Diagnoses: Acute expressive aphasia Peripheral arterial disease Chronic left lower extremity ankle wound History diarrhea - HPI History of Present Illness: Patient is an 83-year-old female with expressive aphasia. History is very difficult to obtain due to the patient'sAcute expressive aphasia. Per Dr. Jaffe in the ED, patient is is an 83-year-old female with a PMH of peripheral vascular disease who states that she is not on any medications. She went to the hospital in [place] today for a scheduled outpatient vascular procedure. She reported to them that she was having some diarrhea in the morning and they canceled her case. She turned around to come back home and on the way home she started to have word finding difficulty. This continued until she arrived at the hospital and had apparently resolved when the ED physician was performing his assessments. She was evaluated as a code neuro. Head CT was negative for acute findings, as was the head and neck CT angiogramm showing partial occlusion of bilateral ICA but no obvious large vessel occlusion. Telemedicine neurology consultation was obtained. She was not felt to be a candidate for thrombolytic therapy as symptoms had improved, request for observation for stroke work-up was made. - CONSULTS | PROCEDURES Consultations: Teleneurology - HOSPITAL COURSE Hospital Course: (1) TIA (transient ischemic attack) Assessment/Plan: Patient was evaluated by telemetry neurology for presentation with expressive aphasia which has resolved at this time. Patient was evaluated as a code neuro. CT of head was negative for any acute findings CTA of head and neck showed partial occlusion of bilateral ICA but no obvious large vessel occlusion. Telemetry medicine neurology consultation was obtained at [id number] and was not felt to be candidate for thrombolytic therapy. Patient was initiated on ASA and she was also given a load of Plavix and is to continue with dual antiplatele t agents.MRI of brain without contrast reveals no acute or subacute infarct. No acute intracranial abnormalities. Age-related global volume loss and chronic microvascular ischemic changes were found. Patient's echocardiogram report reveals underlying rhythm is sinus. Left ventricle size is normal. Wall thickness is normal. EF is 60 to 65% with normal diastology for age. Right ventricle size is normal systolic right ventricle function is normal. Right atrial size is normal. The aortic valve is trileaflet there is mild aortic valve sclerosis no evidence of aortic stenosis. There is no evidence of aortic regurgitation.There is trace mitral regurgitation. The tricuspid valve appears structurally normal. Mild tricuspid regurgitation present. Pulmonic valve is normal. Trace pulmonic regurgitation. Intra-atrial septum is intact there is lipomatous hypertrophy of the intra-atrial septum. No mass or thrombus identified. No pleural effusion noted. (2) PAD (peripheral artery disease) Assessment/Plan: Patient was on her way to [facility] to have a procedure done on lower extremity for PAD. This procedure was deferred due to patient's acute neurological change. She is to continue with ASA and Plavix for now. 3. Type 2 diabetes -Patient's hemoglobin A1c was 8.2. Patient is to follow-up with her primary care provider for further diabetes management recommendations - ALLERGIES Allergies/Adverse Reactions: Allergies Allergy/AdvReac Type Severity Reaction Status Date / Time No Known Drug Allergies Allergy Verified 04/26/23 12:06 - MEDICATIONS Home Medications: Ambulatory Orders Medication Instructions Recorded Confirmed Acetaminophen [Tylenol] 650 mg PO Q4HR PRN tab 04/28/23 Aspirin Chewable [St Jon 162 mg PO DAILY #30 tab 04/28/23 Aspirin] Atorvastatin [Lipitor] 80 mg PO QPM #30 tab 04/28/23 Clopidogrel [Plavix] 75 mg PO DAILY #30 tab 04/28/23 - PHYSICAL EXAM AT DISCHARGE General Appearance: positive: No acute distress, Alert Eyes Bilateral: positive: Normal inspection Neck: positive: Nml inspection Respiratory: positive: No respiratory distress, Breath sounds nml Cardiovascular: positive: Regular rate & rhythm, No murmur Abdomen: positive: Non-tender Skin: positive: No rash Neurologic/Psychiatric: positive: Oriented x3, Motor nml, Sensation nml, Mood/affect nml - LABS Result Diagrams: 04/28/23 05:14 04/28/23 05:14"
== END 2023-04-28 11:40 | disposition home or self-care (01) ==
LOC: ED 11:14 → MS2 13:16
PROVIDERS: ADMIT Family Medicine Sports Medicine; ATTEND Family Medicine Sports Medicine
DX: G45.9 Transient cerebral ischemic attack, unspecified (principal); I73.9 Peripheral vascular disease, unspecified; E11.9 Type 2 diabetes mellitus without complications; I65.23 Occlusion and stenosis of bilateral carotid arteries; I08.2 Rheumatic disorders of both aortic and tricuspid valves; S91.002A Unspecified open wound, left ankle, initial encounter; X58.XXXA Exposure to other specified factors, initial encounter; R19.7 Diarrhea, unspecified; R74.01 Elevation of levels of liver transaminase levels; R74.8 Abnormal levels of other serum enzymes
CPT/HCPCS: 36415; 70450; 70496; 70498; 70551; 80048; 80053; 80061; 80076; 83036; 83690; 85025; 85027; 85610; 93005; 93306; 97116; 97161; 97165; 97530; 99285; A9270; G0378; Q9967; 83721

== ENCOUNTER 2023-05-10 15:57 | Outpatient (CLI) | payer MEDICARE, MEDICAID | END 2023-05-10 23:59 | disposition short-term general hospital (02) | LOC: EMS 15:57 | DX: R41.0 Disorientation, unspecified (principal); R51.9 Headache, unspecified; R47.89 Other speech disturbances | CPT/HCPCS: A0425; A0429 ==

== ENCOUNTER 2023-05-18 09:02 | Outpatient (CLI) | payer MEDICARE, MEDICAID ==
[2023-05-18 09:12] LABS: BASOPHILS % (AUTO) 0.4 %; HCT - HEMATOCRIT 39.7 % (37.0-47.0); HGB - HEMOGLOBIN 13.7 g/dL (12.0-16.0); LYMPHOCYTES # (AUTO) 1.1 10^3/uL (1.5-3.5); LYMPHOCYTES % (AUTO) 23.7 %; MEAN CORPUSCULAR HEMOGLOBIN 30.9 pg (27.0-31.0); MEAN CORPUSCULAR HGB CONC 34.5 g/dL (32.0-36.0); MEAN CORPUSCULAR VOLUME 89.6 fL (81.0-99.0); MEAN PLATELET VOLUME 9.1 fL (7.9-10.8); MONOCYTES # (AUTO) 0.7 10^3/uL (0.0-1.0); MONOCYTES % (AUTO) 14.7 %; NEUTROPHILS # (AUTO) 2.7 10^3/uL (1.5-6.6); NEUTROPHILS % (AUTO) 60.8 %; PLT - PLATELET COUNT 227 10^3/uL (130-450); RED BLOOD COUNT 4.43 10^6/uL (4.20-5.40); RED CELL DISTRIBUTION WIDTH 13.5 % (12.0-15.0); WHITE BLOOD COUNT 4.5 x10^3/uL (4.8-10.8)
[2023-05-18 09:26] LABS: ALBUMIN 4.2 g/dL (3.2-5.5); ALBUMIN/GLOBULIN RATIO 1.4 (1.0-2.2); ALKALINE PHOSPHATASE 137 IU/L (42-121); ALT ALANINE AMINOTRANSFERASE 39 IU/L (10-60); AST ASPARTATE AMINOTRANSFERASE 23 IU/L (10-42); BILIRUBIN,TOTAL 0.8 mg/dL (0.2-1.0); BUN - BLOOD UREA NITROGEN 9 mg/dL (6-20); CARBON DIOXIDE - CO2 27 mmol/L (21-32); CHLORIDE 102 mmol/L (101-111); CHOL/HDL RATIO 3.2 (<4.4); CHOLESTEROL 178 mg/dL; CREATININE 0.7 mg/dL (0.6-1.3); GFR - MDRD 80 (>89); GLUCOSE 232 mg/dL (74-104); HDL CHOLESTEROL 56 mg/dL; LDL CHOLESTEROL,CALCULATED 97 mg/dL; LDL/HDL RATIO 1.7 (<4.4); POTASSIUM 3.8 mmol/L (3.5-4.5); SODIUM 135 mmol/L (135-145); TOTAL PROTEIN 7.2 g/dL (6.4-8.9); TRIGLYCERIDES 127 mg/dL (48-352); VLDL CHOLESTEROL 25 mg/dL
[2023-05-18 09:41] LABS: THYROID STIMULATING HORMONE 2.32 uIU/mL (0.34-5.60)
[2023-05-18 10:21] LABS: ESTIMATED AVERAGE GLUCOSE 200 mg/dL (70-100); HEMOGLOBIN A1c% 8.6 % (4.27-6.07)
== END 2023-05-18 09:03 | disposition home or self-care (01) ==
LOC: LAB 09:02
PROVIDERS: ATTEND Internal Medicine
DX: E11.9 Type 2 diabetes mellitus without complications (principal); I99.9 Unspecified disorder of circulatory system
CPT/HCPCS: 36415; 80053; 80061; 83036; 83721; 84443; 85025

== ENCOUNTER 2023-05-19 16:05 | Emergency (ER) | payer MEDICARE, MEDICAID ==
--- OUTSIDE RECORDS SUMMARY | 2023-05-19 16:40 | EXTERNAL MEDICAL SUMMARY RPT | Continuity of Care Document ---
Author Name Unknown Address [address] [place] [address] Phone Organization [facility] Address [address] [place] [address] Phone Care Team Providers Care Sugar Laboratory Assistant Name Role Phone Unavailable Unavailable Unavailable Erika Patient Registrar Ii, Bekah Unavail able Unavailable Julius Witt Md Unavailable Unavailable [facility] Fur Blower Iii, Elizabeth Unavailable Unavailable Storm [facility], Referrals, Elizabeth Unavailable Unav ailable Corey, Provider Unavailable Unavailable Problems date description facility 2023-03-03 00:00 Closed fracture of f ifth metatarsal bone of left foot [facility] 2023-03-03 00:00 Closed fracture of f ifth metatarsal bone of left foot [facility] 2023-03-03 00:00 Closed fracture of f ifth metatarsal bone of left foot [facility] 2023-03-03 00:00 Closed fracture of f ifth metatarsal bone of left foot [facility] 2023-03-03 00:00 Closed fracture of f ifth metatarsal bone of left foot [facility] 2023-03-03 00:00 Sprain of left foot [facility] [place] 2023-03-03 00:00 Sprain of left foot [facility] [place] 2023-03-03 00:00 Sprain of left foot [facility] [place] 2023-03-03 00:00 Sprain of left foot [facility] [place] 2023-03-03 00:00 Sprain of left foot [facility] [place] 2023-03-03 00:00 Fracture of metatars al bone(s), closed [facility] 2023-03-03 00:00 Fracture of metatars al bone(s), closed [facility] 2023-03-03 00:00 Fracture of metatars al bone(s), closed [facility] 2023-03-03 00:00 Fracture of metatars al bone(s), closed [facility] 2023-03-03 00:00 Fracture of metatars al bone(s), closed [facility] 2023-03-03 00:00 Calcaneofibular (lig ament) ankle sprain [facility] 2023-03-03 00:00 Calcaneofibular (lig ament) ankle sprain [facility] 2023-03-03 00:00 Calcaneofibular (lig ament) ankle sprain [facility] 2023-03-03 00:00 Calcaneofibular (lig ament) ankle sprain [facility] 2023-03-03 00:00 Calcaneofibular (lig ament) ankle sprain [facility] 2023-03-03 00:00 Nondisplaced fractur e of fifth metatarsal bone, left foot, initial encounter for closed fracture [facility] 2023-03-03 00:00 Nondisplaced fractur e of fifth metatarsal bone, left foot, initial encounter for closed fracture [facility] 2023-03-03 00:00 Nondisplaced fractur e of fifth metatarsal bone, left foot, initial encounter for closed fracture [facility] 2023-03-03 00:00 Nondisplaced fractur e of fifth metatarsal bone, left foot, initial encounter for closed fracture [facility] 2023-03-03 00:00 Nondisplaced fractur e of fifth metatarsal bone, left foot, initial encounter for closed fracture [facility] 2023-03-03 00:00 Sprain of calcaneofi bular ligament of left ankle, initial encounter [facility] [place] 2023-03-03 00:00 Sprain of calcaneofi bular ligament of left ankle, initial encounter [facility] [place] 2023-03-03 00:00 Sprain of calcaneofi bular ligament of left ankle, initial encounter [facility] [place] 2023-03-03 00:00 Sprain of calcaneofi bular ligament of left ankle, initial encounter [facility] [place] 2023-03-03 00:00 Sprain of calcaneofi bular ligament of left ankle, initial encounter [facility] [place] 2023-03-03 00:00 Unspecified sprain o f left foot, initial encounter [facility] [place] 2023-03-03 00:00 Unspecified sprain o f left foot, initial encounter [facility] [place] 2023-03-03 00:00 Unspecified sprain o f left foot, initial encounter [facility] [place] 2023-03-03 00:00 Unspecified sprain o f left foot, initial encounter [facility] [place] 2023-03-03 00:00 Unspecified sprain o f left foot, initial encounter [facility] [place] 2023-03-04 00:00 Acquired pronation deformity of foot [facility] [place] 2023-03-04 00:00 Acquired pronation deformity of foot [facility] [place] 2023-03-04 00:00 Acquired pronation deformity of foot [facility] [place] 2023-03-04 00:00 Acquired pronation deformity of foot [facility] 2023-03-04 00:00 Acquired pronation deformity of foot [facility] [place] 2023-03-04 00:00 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 [facility] 2023-03-04 00:00 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 [facility] 2023-03-04 00:00 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 [facility] 2023-03-04 00:00 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 [facility] 2023-03-04 00:00 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 [facility] 2023-03-04 00:00 Other acquired defor mities of left foot [facility] 2023-03-04 00:00 Other acquired defor mities of left foot [facility] 2023-03-04 00:00 Other acquired defor mities of left foot [facility] 2023-03-04 00:00 Other acquired defor mities of left foot [facility] 2023-03-04 00:00 Other acquired defor mities of left foot [facility] Procedures date description facility 2023-03-03 00:00 Visit Code Hold [facility] 2023-03-03 00:00 Visit Code Hold [facility] 2023-03-03 00:00 Visit Code Hold [facility] 2023-03-03 00:00 Visit Code Hold [facility] 2023-03-03 00:00 Visit Code Hold [facility] 2023-03-03 00:00 XR ANKLE COMPLETE MIN 3 VIEWS [facility] 2023-03-03 00:00 XR ANKLE COMPLETE MIN 3 VIEWS [facility] 2023-03-03 00:00 XR ANKLE COMPLETE MIN 3 VIEWS [facility] 2023-03-03 00:00 XR ANKLE COMPLETE MIN 3 VIEWS [facility] 2023-03-03 00:00 XR ANKLE COMPLETE MIN 3 VIEWS [facility] 2023-03-03 00:00 XR FOOT COMPLETE MIN 3 VIEW [facility] 2023-03-03 00:00 XR FOOT COMPLETE MIN 3 VIEW [facility] 2023-03-03 00:00 XR FOOT COMPLETE MIN 3 VIEW [facility] 2023-03-03 00:00 XR FOOT COMPLETE MIN 3 VIEW [facility] 2023-03-03 00:00 XR FOOT COMPLETE MIN 3 VIEW [facility] Results/Labs test date facility value unit notes Vital Signs date measurement value units 2023-03-03 00:00 BMI 26.88 kg/m2 2023-03-03 00:00 BP_diastolic 60 mmHg 2023-03-03 00:00 BP_systolic 118 mmHg 2023-03-03 00:00 heart_rate 88 /min 2023-03-03 00:00 height_metric 159.38 cm 2023-03-03 00:00 height_standard 62.75 in 2023-03-03 00:00 respiration_rate 16 /min 2023-03-03 00:00 temperature_metric 36.11 C 2023-03-03 00:00 temperature_standard 97 F 2023-03-03 00:00 weight_metric 68.04 kg 2023-03-03 00:00 weight_standard 150 lb
--- NOTE | 2023-05-19 18:17 | ED Physician Documentation ---
History of Present Illness - Stated complaint Stated Complaint: FEMALE - Chief complaint Chief Complaint: General - Additonal information Additional information: 83-year-old female who has a history of a pessary device presents emergency department for concerns that the pessary has become malpositioned. [facility]. She was driving and felt that the pessary had moved down resulting in pressure on her rectum. She has had a pessary now for 8 years. Review of Systems : reports: Other PD PAST MEDICAL HISTORY - Past Medical History Past Medical History: Yes Cardiovascular: Peripheral Vascular Disease Respiratory: None Neuro: Peripheral neuropathy Endocrine/Autoimmune: Other Musculoskeletal: Other Derm: None - Past Surgical History Past Surgical History: Yes Ortho: Other - Present Medications Home Medications: Ambulatory Orders Medication Instructions Recorded Confirmed Aspirin Chewable [[facility] Jon 162 mg PO DAILY #30 tab 04/28/23 05/19/23 Aspirin] - Allergies Allergies/Adverse Reactions: Allergies Allergy/AdvReac Type Severity Reaction Status Date / Time No Known Drug Allergies Allergy Verified 04/26/23 12:06 - Social History Does the pt smoke?: No Smoking Status: Never smoker Does the pt drink ETOH?: No Does the pt have substance abuse?: No - Immunizations Immunizations are current?: Yes - POLST Patient has POLST: No PD ED PE EXPANDED - Female Female : Media Marketing Manager present, Other (Pessary dislodgment with Eleno min RN present, patient was placed in lithotomy position modified and using large amount of lubrication I was able to easily digitally extract the pessary device. ) Results - Vitals Vitals: Vital Signs - 24 hr 05/19/23 16:23 Temperature 36 C L Heart Rate 85 Respiratory 20 Rate Blood Pressure 127/82 H O2 Saturation 99 Oxygen O2 Source Room air PD Medical Decision Making - ED course Complexity details: d/w patient ED course: 83-year-old female here for evaluation of her pessary which she felt has become dislodged. Occurred while driving. She attempted to remove the device herself but was unable to do so thus she presents here. With Kizzy sprinkling system irrigator at bedside, I utilized a lot of lubrication and was able to easily retrieve the device. The patient did not want it placed back again. She is going to [facility] to schedule follow-up appointment. Once the pessary was removed she had immediate resolution of her symptoms. Departure - Departure Disposition: 01 Home, Self Care Clinical Impression: Encounter for pessary maintenance Condition: Stable Record reviewed to determine appropriate education?: Yes Comments: Your pessary became dislodged while you are driving today. I was able to remove it. Please contact the women's health department to schedule follow-up to have the device replaced. Return to the ER for any new or worsening symptoms such as pain when you urinate or fevers or abdominal pain.
[2023-05-19 18:34] VITALS: BP 134/90; O2SAT 100
== END 2023-05-19 18:30 | disposition home or self-care (01) ==
LOC: ED 16:05
DX: T85.628A Displacement of other specified internal prosthetic devices, implants and grafts, initial encounter (principal)
CPT/HCPCS: 99281; 99282

== ENCOUNTER 2023-07-29 12:40 | Outpatient (CLI) | payer MEDICARE, MEDICAID ==
--- NOTE | 2023-07-29 18:51 | Ultrasound Report ---
PROCEDURE: Duplex Lwr Ext Arterial Bilat INDICATIONS: PERIPHERAL ARTERIAL OCCLUSIVE DISEASE TECHNIQUE: Color and pulse Doppler interrogation was performed of both lower extremity arterial systems, with im age documentation. COMPARISON: 03/14/2023 FINDINGS: Right lower extremity: Common femoral artery: 152 cm/sec, with biphasic flow. Deep femoral artery: 87 cm/sec, with biphasic flow. Proximal superficial femoral artery: 60 cm/sec, with monophasic flow. Mid superficial femoral artery: 56 cm/sec, with monophasic flow. Distal superficial femoral artery: 32 cm/sec, with monophasic flow. Popliteal artery: 43 cm/sec, with monophasic flow. Posterior tibial artery: Not visualized.. Anterior tibial artery/dorsalis pedis: 24 cm/sec, with monophasic flow. Greenberg-scale imaging description: Diffuse atherosclerotic plaque. Left lower extremity: Common femoral artery: 143 cm/sec, with biphasic flow. Deep femoral artery: 97 cm/sec, with monophasic flow. Proximal superficial femoral artery: 19 cm/sec, with monophasic flow. Mid superficial femoral artery: 10 cm/sec, with monophasic flow. Distal superficial femoral artery: 34 cm/sec, with monophasic flow. Popliteal artery: 35 cm/sec, with monophasic flow. Posterior tibial artery: 28 cm/sec, with monophasic flow. Anterior tibial artery/dorsalis pedis: 28 cm/sec, with monophasic flow. Greenberg-scale imaging description: Atherosclerotic plaque throughout. Decreased velocities in the left lower extremity compared with prior. IMPRESSION: Transition from biphasic flow to monophasic flow from the common femoral arteries to the superficial femoral arteries. Diffuse plaque throughout. While there is no hemodynamically significant stenosis i dentified, the transition from biphasic to monophasic likely indicates stenosis. Reviewed by: Yannick Quinn on 07/29/2023 6:50 PM PDT Approved by: Yannick Quinn on 07/29/2023 6:50 PM PDT Station ID: [id number]
== END 2023-07-29 12:41 | disposition home or self-care (01) ==
LOC: DI 12:40
PROVIDERS: ATTEND Internal Medicine
DX: I70.203 Unspecified atherosclerosis of native arteries of extremities, bilateral legs (principal)
CPT/HCPCS: 93925

== ENCOUNTER 2024-06-20 10:31 | Outpatient (CLI) | payer MEDICARE, MEDICAID ==
[2024-06-20 10:45] LABS: BASOPHILS % (AUTO) 0.2 %; EOSINOPHILS % (AUTO) 0.2 %; HCT - HEMATOCRIT 40.1 % (37.0-47.0); HGB - HEMOGLOBIN 13.2 g/dL (12.0-16.0); LYMPHOCYTES % (AUTO) 18.6 %; MEAN CORPUSCULAR HEMOGLOBIN 29.7 pg (27.0-31.0); MEAN CORPUSCULAR HGB CONC 32.9 g/dL (32.0-36.0); MEAN CORPUSCULAR VOLUME 90.3 fL (81.0-99.0); MEAN PLATELET VOLUME 9.2 fL (7.9-10.8); MONOCYTES # (AUTO) 0.7 10^3/uL (0.0-1.0); MONOCYTES % (AUTO) 12.6 %; NEUTROPHILS # (AUTO) 3.8 10^3/uL (1.5-6.6); NEUTROPHILS % (AUTO) 68.2 %; PLT - PLATELET COUNT 198 10^3/uL (130-450); RED BLOOD COUNT 4.44 10^6/uL (4.20-5.40); RED CELL DISTRIBUTION WIDTH 13.5 % (12.0-15.0); WHITE BLOOD COUNT 5.5 x10^3/uL (4.8-10.8)
[2024-06-20 10:52] LABS: ESTIMATED AVERAGE GLUCOSE 131 mg/dL (70-100); HEMOGLOBIN A1c% 6.2 % (4.27-6.07)
[2024-06-20 10:54] LABS: CREATININE,URINE 156.9 mg/dL; MICROALBUM/CREATININE RATIO,UR 36.3 ug/mg (<30.0); MICROALBUMIN,URINE 5.7 mg/dL
[2024-06-20 11:22] LABS: ALBUMIN 4.3 g/dL (3.2-5.5); ALBUMIN/GLOBULIN RATIO 1.6 (1.0-2.2); ALKALINE PHOSPHATASE 111 IU/L (42-121); ALT ALANINE AMINOTRANSFERASE 18 IU/L (10-60); AST ASPARTATE AMINOTRANSFERASE 19 IU/L (10-42); BILIRUBIN,TOTAL 0.5 mg/dL (0.2-1.0); BUN - BLOOD UREA NITROGEN 16 mg/dL (6-20); CALCIUM 10.2 mg/dL (8.5-10.3); CARBON DIOXIDE - CO2 29 mmol/L (21-32); CHLORIDE 101 mmol/L (101-111); CHOL/HDL RATIO 4.6 (<4.4); CHOLESTEROL 269 mg/dL; CREATININE 0.7 mg/dL (0.6-1.3); GFR - MDRD 80 (>89); GLUCOSE 110 mg/dL (74-104); HDL CHOLESTEROL 58 mg/dL; LDL CHOLESTEROL,CALCULATED 155 mg/dL; LDL/HDL RATIO 2.7 (<4.4); POTASSIUM 3.8 mmol/L (3.5-4.5); SODIUM 137 mmol/L (135-145); TRIGLYCERIDES 280 mg/dL; VLDL CHOLESTEROL 56 mg/dL
== END 2024-06-20 10:32 | disposition home or self-care (01) ==
LOC: LAB 10:31
PROVIDERS: ATTEND Internal Medicine
DX: E11.65 Type 2 diabetes mellitus with hyperglycemia (principal); R03.0 Elevated blood-pressure reading, without diagnosis of hypertension
CPT/HCPCS: 36415; 80053; 80061; 82043; 82570; 83036; 83721; 85025